=== PATIENT | female | born 1995 | race Hispanic/Latino ===

== ENCOUNTER 2018-04-19 23:29 | Emergency (ER) | payer BC ==
[2018-04-19 23:38] VITALS: TEMP 98.4
[2018-04-20] MEDS ORDERED: Lidocaine 5% Patch TD ONE (00:45)
[2018-04-20] MEDS: Lidocaine 5% Patch TD STA (00:53)
--- NOTE | 2018-04-20 01:34 | ED PDOC ---
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 Patient states that while sitting down at dinner for 45 minutes, she developed progressively worsening left sided lower back pain radiating into her left leg. Reports that seven months ago, she was diagnosed with a herniated disc but does not remember the pain ever being this bad. Denies taking medication prior to arrival, trauma, incontinence, saddle paresthesia, hematuria, and dysuria. PMD: none provided Past Medical History Reviewed: Historical Data, Nursing Documentation, Vital Signs Vital Signs: Last Vital Signs Temp 98.4 F 04/19/18 23:35 Pulse 104 H 04/19/18 23:35 Resp 18 04/19/18 23:35 BP 114/73 04/19/18 23:35 Pulse Ox 98 04/19/18 23:35 - Medical History Other PMH: herniated disc - Surgical History Surgical History: No Surg Hx - Family History Family History: States: Unknown Family Hx - Home Medications Home Medications: Ambulatory Orders Medication Instructions Recorded Cyclobenzaprine [Cyclobenzaprine 10 mg PO Q8 PRN #14 tab 04/20/18 HCl] Lidocaine 5% [Lidoderm] 1 ea TD DAILY PRN #10 patch 04/20/18 Naproxen [Naprosyn] 500 mg PO BID PRN #14 tab 04/20/18 - Allergies Allergies/Adverse Reactions: Allergies Allergy/AdvReac Type Severity Reaction Status Date / Time No Known Allergies Allergy Verified 04/19/18 23:38 Review of Systems ROS Statement: Except As Marked, All Systems Reviewed And Found Negative Constitutional: Negative for: Other (trauma) Genitourinary Female: Negative for: Dysuria, Incontinence, Hematuria Musculoskeletal: Positive for: Back Pain (lower left radiating into left leg) Neurological: Negative for: Other (saddle paresthesia) Physical Exam - Reviewed Nursing Documentation Reviewed: Yes Vital Signs Reviewed: Yes - Physical Exam Appears: Positive for: In Acute Distress (mild painful) Skin: Positive for: Normal Color, Warm, Dry Pulses-Dorsalis Pedis (L): 2+ Pulses-Dorsalis Pedis (R): 2+ Gastrointestinal/Abdominal: Positive for: Normal Exam, Soft. Negative for: Tenderness Back: Positive for: Normal Inspection, Other (left sided para lumbar muscle spasm; straight leg raise left leg positive at 30 degrees and negative in right leg). Negative for: L CVA Tenderness, R CVA Tenderness, Vertebral Tenderness Extremity: Positive for: Normal ROM, Other (5/5 strenngth in bilat LE) Neurologic/Psych: Positive for: Alert, Oriented - Laboratory Results Urine POC: Negative - ECG O2 Sat by Pulse Oximetry: 98 (RA) Pulse Ox Interpretation: Normal - Radiology X-Ray: Interpreted by Me (LS spine x-ray) X-Ray Interpretation: No Acute Disease - Progress ED Course And Treament: On re-evaluation, pt. reports improvement in pain. Gait steady unassisted. Medical Decision Making Medical Decision Making: Time: 31 Initial Impression: sciatica Initial Plan: --Urine --Lidoderm 1 ea TD --Toradol 30mg IM --Valium 5mg PO --LS Spine AP/LAT XR Scribe Attestation: Documented by Nichole Curtis, acting as a scribe for Emil Rogers PA-C. Provider Scribe Attestation: All medical record entries made by the Scribe were at my direction and personally dictated by me. I have reviewed the chart and agree that the record accurately reflects my personal performance of the history, physical exam, medical decision making, and the department course for this patient. I have also personally directed, reviewed, and agree with the discharge instructions and disposition. Disposition - Clinical Impression Clinical Impression: Sciatica - Patient ED Disposition Is Patient to be Admitted: No - Disposition Referrals: Far[facility] Arias [Outside] Disposition: Routine/Home Disposition Time: 01:55 Condition: IMPROVED Additional Instructions: JAXSON LUIS, thank you for letting us take care of you today. Your provider was Driss Elizalde MD and you were treated for BACK PAIN. The emergency medical care you received today was directed at your acute symptoms. If you were prescribed any medication, please fill it and take as directed. It may take several days for your symptoms to resolve. Return to the Emergency Department if your symptoms worsen, do not improve, or if you have any other problems. Please contact your doctor or call one of the physicians/clinics you have been referred to that are listed on the Patient Visit Information form that is included in your discharge packet. Bring any paperwork you were given at discharge with you along with any medications you are taking to your follow up visit. Our treatment cannot replace ongoing medical care by a primary care provider outside of the emergency department. Thank you for allowing the [facility] team to be part of your care today. If you had an X-Ray or CT scan: A Radiologist will review the ED reading if any change in treatment is needed we will contact you. If you had a blood, urine, or wound culture: It will take several days for the results, if any change in treatment is needed we will contact you. If you had an STI test: It will take 48 hours for the results. Please call after 1 week if you have not heard back. Prescriptions: Cyclobenzaprine [Cyclobenzaprine HCl] 10 mg PO Q8 PRN #14 tab PRN Reason: Muscle Spasm Lidocaine 5% [Lidoderm] 1 ea TD DAILY PRN #10 patch PRN Reason: Pain Naproxen [Naprosyn] 500 mg PO BID PRN #14 tab PRN Reason: Pain Instructions: Sciatica (DC), Sciatica Exercises Forms: [employer] ([place]) Print Language: [place]
[2018-04-20 02:22] VITALS: BP 124/70; PULSE 91; RESP 17
[2018-04-20 05:24] VITALS: O2SAT 98
--- NOTE | 2018-04-20 08:13 | RAD ---
Date of service: 04/20/2018 PROCEDURE: Radiographs of the Lumbar Spine. HISTORY: pain COMPARISON: No prior. FINDINGS: BONES: Normal alignment. No listhesis. No fracture. DISC SPACES: Unremarkable. OTHER FINDINGS: Dextroscoliosis. . IMPRESSION: No fracture. Dextroscoliosis.
== END 2018-04-20 02:20 | disposition home or self-care (01) ==
LOC: H.ER 23:29
DX: M54.32 Sciatica, left side (principal)
CPT/HCPCS: 72100; 81025; 96372; 99282; J1885